=== PATIENT | female | born 1975 | race Caucasian/White ===

== ENCOUNTER 2017-01-10 21:31 | Emergency (ER) | payer SELFPAY ==
--- NOTE | 2017-01-10 21:52 | ED ---
Head Injury HPI - General Chief complaint: Head Injury Stated complaint: Fall Head Injury Time Seen by Provider: 01/10/17 21:46 Source: patient, RN notes reviewed Mode of arrival: wheelchair Limitations: no limitations - History of Present Illness Initial comments: 41-year-old female presents emergency Department chief complaint of head injury. Patient states she's been drinking all day moving her family. Patient states that she went to lay down in her bed and states that she struck the nightstand. Patient states she believes she passed out. Patient states her tetanus is up-to-date within last 5 years. Denies any neck or back pain. She states she has no other injures time she does complain of headache denies any blurred vision or any focal weakness. Denies any nausea vomiting. - Related Data Allergies/Adverse reactions: Allergies Allergy/AdvReac Type Severity Reaction Status Date / Time No Known Allergies Allergy Verified 01/10/17 21:35 Review of Systems ROS Statement: Those systems with pertinent positive or pertinent negative responses have been documented in the HPI. ROS Other: All systems not noted in ROS Statement are negative. Past Medical History Additional Past Medical History / Comment(s): crohns History of Any Multi-Drug Resistant Organisms: None Reported Past Surgical History: No Surgical Hx Reported Past Psychological History: Depression Smoking Status: Never smoker Past Alcohol Use History: Occasional Past Drug Use History: Marijuana General Exam Limitations: no limitations General appearance: alert, in no apparent distress, appears intoxicated Head exam: Present: atraumatic, normocephalic, normal inspection Eye exam: Present: normal appearance, PERRL, EOMI. Absent: scleral icterus, conjunctival injection, periorbital swelling ENT exam: Present: normal exam, normal oropharynx, mucous membranes moist, TM's normal bilaterally, normal external ear exam Neck exam: Present: normal inspection, full ROM. Absent: tenderness, meningismus, lymphadenopathy Respiratory exam: Present: normal lung sounds bilaterally. Absent: respiratory distress, wheezes, rales, rhonchi, stridor Cardiovascular Exam: Present: regular rate, normal rhythm, normal heart sounds. Absent: systolic murmur, diastolic murmur, rubs, gallop, clicks GI/Abdominal exam: Present: soft, normal bowel sounds. Absent: distended, tenderness, guarding, rebound, rigid Neurological exam: Present: alert, oriented X3, CN II-XII intact Skin exam: Present: warm, dry, intact, normal color. Absent: rash Course Vital Signs 01/10/17 01/10/17 21:35 22:30 Temperature 97.7 F Pulse Rate 100 112 H Respiratory 18 20 Rate Blood Pressure 144/93 144/97 O2 Sat by Pulse 99 97 Oximetry Procedures - Laceration Laceration #1 Consent Obtained: verbal consent Indication: laceration Site: scalp Size (cm): 3 Description: linear Depth: simple, single layer Type of Sutures: other (Dermal omer) Number of Sutures: 4 (Dermal moer) Patient Tolerated Procedure: well, no complications Medical Decision Making - Medical Decision Making 41-year-old female presented emergency from for head injury. Patient CT CT does not reveal any acute abnormality. Patient is up-to-date on her tetanus. Her laceration was closed patient will be discharged to family member who is sober. Return parameters were discussed. Disposition Clinical Impression: Concussion, Scalp laceration Disposition: HOME SELF-CARE Condition: Stable Instructions: Concussion (ED) Additional Instructions: Have omer removed in 7 days.Please return to the Emergency Department if symptoms worsen or any other concerns. Referrals: Nonstaff,Physician [Primary Care Provider] - 1-2 days Time of Disposition: 22:38
[2017-01-10 22:30] VITALS: RESP 20
--- NOTE | 2017-01-10 22:48 | CT ---
EXAM: CT Head Without Intravenous Contrast CLINICAL HISTORY: Status post trauma with pain TECHNIQUE: Axial computed tomography images of the head/brain without intravenous contrast. DLP is 1098.80 mGy-cm. This CT exam was performed using one or more of the following dose reduction techniques: automated exposure control, adjustment of the mA and/or kV according to patient size, and/or use of iterative reconstruction technique. COMPARISON: No relevant prior studies available. FINDINGS: Brain: Unremarkable. No hemorrhage. No significant white matter disease. No edema. Ventricles: Unremarkable. No ventriculomegaly. Bones/joints: Unremarkable. No acute fracture. Soft tissues: Mild scalp soft tissue swelling overlying the right occipital calvarium. Sinuses: Partial opacification of the ethmoid air cells is seen bilaterally. Probable minimal mucosal thickening involving the right sphenoid sinus. Mastoid air cells: Unremarkable as visualized. No mastoid effusion. IMPRESSION: No evidence of acute intracranial pathology. Sinus disease, as described above. EXAM: CT Cervical Spine Without Intravenous Contrast CLINICAL HISTORY: Status post trauma with pain TECHNIQUE: Axial computed tomography images of the cervical spine without intravenous contrast. DLP is 430.60 mGy-cm. This CT exam was performed using one or more of the following dose reduction techniques: automated exposure control, adjustment of the mA and/or kV according to patient size, and/or use of iterative reconstruction technique. COMPARISON: No relevant prior studies available. FINDINGS: Artifacts: Motion artifact degrades image quality. Vertebrae: Reversal of the normal cervical lordosis is seen, which may represent muscle spasm. Note is made of mild multilevel cervical spondylosis with varying degrees of central canal and foramina stenoses, most notable at C5-C6. No acute fracture. Discs/spinal canal/neural foramina: See above. Soft tissues: There is no evidence of prevertebral soft tissue swelling. Lung apices: Unremarkable as visualized. IMPRESSION: No evidence of acute fracture. No evidence of prevertebral soft tissue swelling. Reversal of the normal cervical lordosis, which may represent muscle spasm. Mild cervical spondylosis, as described above. If there is clinical symptomatology, cervical spine MRI is recommended for further evaluation. [employer] 01/10/17 22:28 Call Doctor Regarding Trauma, called RENE Gallardo on 01/10 22:27 (-04:00)
[2017-01-10 23:27] VITALS: BP 122/58; PULSE 105; TEMP 98.2
== END 2017-01-10 23:24 | disposition home or self-care (01) ==
LOC: EC 21:31
DX: S06.0X0A Concussion without loss of consciousness, initial encounter (principal); S01.01XA Laceration without foreign body of scalp, initial encounter; W06.XXXA Fall from bed, initial encounter
CPT/HCPCS: 12002; 70450; 72125; 99283